=== PATIENT | female | born 1950 | race Caucasian/White ===

== ENCOUNTER 2024-04-11 00:25 | Emergency (ER) | payer OTHER, SELFPAY ==
[2024-04-11 00:26] VITALS: BP 173/100
[2024-04-11 00:54] VITALS: BMI 26.9
[2024-04-11 00:59] VITALS: BP 160/80
[2024-04-11] MEDS: NSS 1000 IV (01:15)
[2024-04-11] MEDS: TORADOL 15 MG IV (01:15)
[2024-04-11 01:17] LABS: Urine Albumin 2+ (Neg - Trace); Urine Bilirubin Negative (Negative); Urine Character Cloudy (Clear); Urine Color Yellow; Urine Glucose Negative (Negative); Urine Ketone 2+ (Negative); Urine Leukocyte 3+ (Negative); Urine Nitrite Positive (Negative); Urine Occult Blood 4+ (Negative); Urine Specific Gravity 1.015 (<1.030); Urine Urobilinogen Negative (Neg - 1+)
[2024-04-11 01:19] LABS: % Basophils 0.2 % (0-2); % Immature Granulocytes 0.4 % (0-0.5); % Lymphocytes 3.5 % (20.5-51.1); % Monocytes 4.5 % (1.7-9.3); % Neutrophils 91.4 % (42.2-75.2); Absolute Immature Granulocytes 0.1 10^3/uL (0-0.05); Absolute Lymphocytes 0.5 10^3/uL (1.2-3.4); Absolute Monocytes 0.7 10^3/uL (0.1-0.6); Absolute Neutrophils 13.7 10^3/uL (1.4-6.5); Hematocrit 43.2 % (37.0-47.0); Hemoglobin 14.3 g/dL (12.0-16.0); Mean Corp Hgb Conc. 33.1 g/dL (33.0-37.0); Mean Corpuscular Hgb 30.1 pg (27.0-31.0); Mean Corpuscular Volume 90.9 fL (81.0-99.0); Mean Platelet Volume 9.4 fL (7.4-10.4); Nucleated Red Blood Cells % 0 %; Platelet Count 227 10^3/uL (130-400); Red Blood Cell Count 4.75 10^6/uL (4.20-5.40); Red Cell Dist. Width 13.4 % (11.5-14.5)
--- NOTE | 2024-04-11 01:20 | ED.GENMED ---
History of Present Illness
<Tulio Cates PA-C - Last Filed: 04/11/24 15:30>
General
Chief Complaint: Flank Pain
Time Seen by Provider: 04/11/24 00:46
History of Present Illness
History of Present Illness:
73-year-old female presents to the emergency department for evaluation of acute onset right flank pain rating to the right pelvis beginning earlier today. Pain has not relented since that time. No fevers, chills, sweats, nausea, vomiting, or
diarrhea but she does report dark/bloody urine. No prior history of kidney stone. No prior history of abdominal surgery
Review of Systems
<Tulio Cates PA-C - Last Filed: 04/11/24 15:30>
Review of Systems
Allergies reviewed?: Yes
All Other Systems: ROS reviewed and negative except as documented in HPI and ROS
Phy Exam
<Tulio Cates PA-C - Last Filed: 04/11/24 15:30>
Physical Exam
Physical Exam:
GEN: Well appearing, NAD, WDWN
HEENT: Oral mucosa moist, no scleral icterus
Cardiac: Regular rate
Lung: No respiratory distress, no tachypnea
Abdomen: Soft, grossly nontender, no CVA tenderness
MSK: No gross deformity or injuries
Skin: Good color, no pallor or jaundice, no rashes
Neuro: AO x3, moves all extremities freely
Psych: Calm, cooperative
Course
<Tulio Cates PA-C - Last Filed: 04/11/24 15:30>
Orders/Labs/Results
Orders:
Orders
04/11/24 01:06
Complete Blood Count/With Diff Urgent
Comprehensive Metabolic Panel Urgent
Urinalysis Reflex To Culture Urgent
Date Specimen was Collected: 04/11/24
Time Specimen was Collected: 01:00
Urine Microscopic Reflex Cult Urgent
Urine Culture Urgent
CUCO Source: U
Specimen Description:
Date Specimen was Collected: 04/11/24
Time Specimen was Collected: 01:00
04/11/24 01:07
CT Abd/pel Without Iv Or Oral Urgent
Comment:
Reason For Exam: R flank pain
0.9% Sodium Chloride 1000 ml [Nss] 1,000 ml IV BOLUS
Ketorolac [Toradol] 15 mg IV NOW STA
04/11/24 01:50
CefTRIAXone [Rocephin] 1,000 mg IV NOW STA
04/11/24 02:07
Sterile Water [Sterile Water For Injection] 10 ml .ROUTE .[facility]
Abnormal Lab Results
04/11/24
01:06
WBC 15.0 H 10^3/uL
(4.8-10.8)
Abs Immat Gran (auto) 0.1 H 10^3/uL
(0-0.05)
Absolute Neuts (auto) 13.7 H 10^3/uL
(1.4-6.5)
Absolute Lymphs (auto) 0.5 L 10^3/uL
(1.2-3.4)
Absolute Monos (auto) 0.7 H 10^3/uL
(0.1-0.6)
Neutrophils % 91.4 H %
(42.2-75.2)
Lymphocytes % 3.5 L %
(20.5-51.1)
Sodium 134 L mmol/L
(135-145)
Glucose 158 H mg/dl
(70-99)
Calcium 10.3 H mg/dl
(8.4-10.2)
Urine Ketones 2+ A
(Negative)
Ur Occult Blood Reflex 4+ A
(Negative)
Urine Nitrite (Reflex) Positive A
(Negative)
Leukocyte Esterase Rfl 3+ A
(Negative)
Urine WBC (Reflex) >100 A /HPF
(0-5)
Urine Bacteria (Reflex) Many A
(Negative)
Urine Albumin (Reflex) 2+ A
(Neg - Trace)
04/11/24 01:06
04/11/24 01:06
Vital Signs
Initial and Last Documented VS:
Initial Vital Signs
Temp Pulse Resp BP Pulse Ox
98.6 F 86 18 173/100 99
04/11/24 00:26 04/11/24 00:26 04/11/24 00:26 04/11/24 00:26 04/11/24 00:26
Last Documented Vital Signs
Temp Pulse Resp BP Pulse Ox
98.6 F 81 16 158/71 96
04/11/24 00:26 04/11/24 04:13 04/11/24 04:13 04/11/24 04:13 04/11/24 04:13
<Meeta Glaser MD - Last Filed: 04/11/24 04:03>
Orders/Labs/Results
Orders:
Orders
04/11/24 01:06
Complete Blood Count/With Diff Urgent
Comprehensive Metabolic Panel Urgent
Urinalysis Reflex To Culture Urgent
Date Specimen was Collected: 04/11/24
Time Specimen was Collected: 01:00
Urine Microscopic Reflex Cult Urgent
Urine Culture Urgent
CUCO Source: U
Specimen Description:
Date Specimen was Collected: 04/11/24
Time Specimen was Collected: 01:00
04/11/24 01:07
CT Abd/pel Without Iv Or Oral Urgent
Comment:
Reason For Exam: R flank pain
0.9% Sodium Chloride 1000 ml [Nss] 1,000 ml IV BOLUS
Ketorolac [Toradol] 15 mg IV NOW STA
04/11/24 01:50
CefTRIAXone [Rocephin] 1,000 mg IV NOW STA
04/11/24 02:07
Sterile Water [Sterile Water For Injection] 10 ml .ROUTE .[facility]
Abnormal Lab Results
04/11/24
01:06
WBC 15.0 H 10^3/uL
(4.8-10.8)
Abs Immat Gran (auto) 0.1 H 10^3/uL
(0-0.05)
Absolute Neuts (auto) 13.7 H 10^3/uL
(1.4-6.5)
Absolute Lymphs (auto) 0.5 L 10^3/uL
(1.2-3.4)
Absolute Monos (auto) 0.7 H 10^3/uL
(0.1-0.6)
Neutrophils % 91.4 H %
(42.2-75.2)
Lymphocytes % 3.5 L %
(20.5-51.1)
Sodium 134 L mmol/L
(135-145)
Glucose 158 H mg/dl
(70-99)
Calcium 10.3 H mg/dl
(8.4-10.2)
Urine Ketones 2+ A
(Negative)
Ur Occult Blood Reflex 4+ A
(Negative)
Urine Nitrite (Reflex) Positive A
(Negative)
Leukocyte Esterase Rfl 3+ A
(Negative)
Urine WBC (Reflex) >100 A /HPF
(0-5)
Urine Bacteria (Reflex) Many A
(Negative)
Urine Albumin (Reflex) 2+ A
(Neg - Trace)
04/11/24 01:06
04/11/24 01:06
Vital Signs
Initial and Last Documented VS:
Initial Vital Signs
Temp Pulse Resp BP Pulse Ox
98.6 F 86 18 173/100 99
04/11/24 00:26 04/11/24 00:26 04/11/24 00:26 04/11/24 00:26 04/11/24 00:26
Last Documented Vital Signs
Temp Pulse Resp BP Pulse Ox
98.6 F 81 16 158/71 96
04/11/24 00:26 04/11/24 04:13 04/11/24 04:13 04/11/24 04:13 04/11/24 04:13
<Tulio Cates PA-C - Last Filed: 04/11/24 15:30>
MDM/Problems Addressed
MDM/Problems Addressed:
73-year-old female presenting with acute onset flank pain., Found to have 2 to 3 mm distal right UVJ stone with upstream hydronephrosis. Given the significant leukocytosis and pyuria we will treat for associated UTI however the patient looks quite
well and there is no concern for septic kidney stone at this time. Signed out to Dr Glaser pending CT report for final disposition
<Tulio Cates PA-C - Last Filed: 04/11/24 15:30>
*Critical Care Note
Total Time (30-74mins, 75-104mins- exclusive of procedures): Not Applicable
<Meeta Glaser MD - Last Filed: 04/11/24 04:03>
Update Note
Update Note:
ct 3MM STONE RUVJ WITH MILD HYDRO
ED Attending Note
<Tulio Catse PA-C - Last Filed: 04/11/24 15:30>
-
Portions of this chart may have been created with voice recognition software.� Occasional wrong word or��sound alike� substitutions may have occurred due to the inherent limitations of voice recognition software.
<Meeta Glaser MD - Last Filed: 04/11/24 04:03>
ED Attending Note
Patient seen and examined by attending physician: Yes
I performed the substantive portion of visit, reviewed & personally made and approve the management plan that is documented in note by myself or JESÚS.: Yes
ED Attending Note:
73 YR OLD WITH ABRUPT ONSET BACK PAIN RADIATING TO FRONT WHILE AT WORK TODAY. NOW, S/P MEDS HERE, PT IS ASX AN FEELS 'GREAT'. NO DYSURIA/FEVER/WEAKNESS/DIFFICULTY URINATING. PT ADVISED RE DX, I JILLIAN A PICTURE, FAMILY PRESENT, LONG DISCUSSION
RE:IMPORT OF F/U, AND REASONS TO RTED INCLUDING ANY AND ALL SXS SUGGESTIVE OF INFX. I PERSONALLY GAVE HER STRAINER. PT WELL APPEARING, SMILING, NONTOXIC.
Discharge Plan
Departure
Patient Disposition: Home (Routine Discharge)
Date of Disposition: 04/11/24
Time of Disposition: 04:00
Patient with high blood pressure during this ER visit?: Yes
Discharge Problem:
Ureterolithiasis
Instructions: Kidney Stones (DC)
Prescriptions:
New
tamsulosin [Flomax] 0.4 mg capsule
0.4 mg PO HS Qty: 10 0RF
ketorolac 10 mg tablet
10 mg PO Q8H Qty: 15 0RF
Rx Instructions:
maximum total duration of 5 days from all oral, intranasal, or parenteral formulations
oxycodone 5 mg tablet
5 mg PO Q8H PRN (Reason: severe pain) Qty: 6 0RF
cefdinir 300 mg capsule
300 mg PO Q12H 5 Days Qty: 10 0RF
Referrals:
Mariano Motta MD [Active] - Next open appointment
UNKNOWN - PT DOES,NOT KNOW [Family Provider] -
Activity Restrictions/Additional Instructions:
IF YOU DEVELOP FEVER, DIFFICULTY URINATING, PAIN WITH URINATION, VOMITING, WEAKNESS, GET WORSE, OR OTHER WORRISOME SIGNS, GO TO THE ER IMMEDIATELY!
Interventions
Interventions:
*Risk Screen - Suicide Last Done: 04/11/24 00:56
*General Assessment Last Done: 04/11/24 00:26
*Neglect/Abuse Screening Last Done: 04/11/24 00:56
*ED COVID-19 Vaccine History Last Done: 04/11/24 00:26
*Nursing Disposition Last Done: 04/11/24 04:22
DR-Gwwbwv-Elipqzmfxg Assessment Last Done: 04/11/24 00:57
ED-Female Genitourinary Assessment Last Done: 04/11/24 00:57
Discharge Date and Time
Discharge Date/Time: 04/11/24 04:23
Print Language: ARMENIAN
[2024-04-11 01:29] LABS: ALT (SGPT) 18 U/L (0-35); AST (SGOT) 24 U/L (14-36); Albumin 4.4 g/dl (3.5-5.0); Alkaline Phosphatase 86 U/L (38-126); Blood Urea Nitrogen 13 mg/dl (7-17); Calcium 10.3 mg/dl (8.4-10.2); Carbon Dioxide 29 mmol/L (22-30); Chloride 99 mmol/L (98-107); Estimated Creatinine Clearance 53 ml/min; Glucose 158 mg/dl (70-99); Potassium 3.9 mmol/L (3.5-5.1); Sodium 134 mmol/L (135-145); Total Bilirubin 0.9 mg/dl (0.2-1.3); Total Protein 7.4 g/dl (6.3-8.2); eGFR > 60.00
[2024-04-11 01:41] LABS: Urine Amorphous Seen; Urine Mucus Many; Urine Squamous Cell >30 /LPF (Few); Urine White Cell >100 /HPF (0-5)
[2024-04-11 01:42] LABS: Urine Bacteria Many (Negative)
[2024-04-11 02:05] VITALS: BP 160/77
[2024-04-11] MEDS: ROCEPHIN 1000 MG IV (02:12)
[2024-04-11 04:13] VITALS: BP 158/71
== END 2024-04-11 04:23 | disposition home or self-care (01) ==
LOC: EMR 00:25
PROVIDERS: Physician Assistant; EMERGENCY PHYSICIAN Emergency Medicine
DX: N13.2 Hydronephrosis with renal and ureteral calculous obstruction (principal); N39.0 Urinary tract infection, site not specified; R03.0 Elevated blood-pressure reading, without diagnosis of hypertension
CPT/HCPCS: 99284; 96374; 96375; 96361; 74176; 80053; 81003; 81015; 85025; 87077; 87086; 87186